=== PATIENT | male | born 1955 | race Caucasian/White ===

== ENCOUNTER → 2022-05-30 | Outpatient (CLI) | payer MEDICARE, OTHER ==
[~2022-05-30] MED LIST: ASPI81CH PO; Multivitamin1 EAC1 PO
[2022-05-30 16:11] LABS: BASOPHILS ABSOLUTE AUTO 0.05 K/mm3 (0.00-0.23); BASOPHILS PERCENT AUTO 1 % (0-2); EOSINOPHILS ABSOLUTE AUTO 0.26 K/mm3 (0.00-0.68); EOSINOPHILS PERCENT AUTO 4 % (0-6); Hematocrit 47.3 % (37.0-53.0); Hemoglobin 16.1 g/dL (13.5-17.5); IMMATURE GRAN ABSOLUTE AUTO 0.03 K/mm3 (0.00-0.10); IMMATURE GRAN PERCENT AUTO 0 % (0-1); LYMPHOCYTES ABSOLUTE AUTO 1.49 K/mm3 (0.84-5.20); LYMPHOCYTES PERCENT AUTO 21 % (21-46); MONOCYTES ABSOLUTE AUTO 0.36 K/mm3 (0.16-1.47); MONOCYTES PERCENT AUTO 5 % (4-13); Mean Corpuscular HGB 30.4 pg (26.0-34.0); Mean Corpuscular Volume 89 fL (80-100); Mean Platelet Volume 11.3 fL (9.1-12.4); NEUTROPHILS PERCENT AUTO 70 % (41-73); Platelet Count 157 K/mm3 (150-400); RDW Coefficient Variation 12.5 % (11.7-14.2); RDW Standard Deviation 41.1 fL (35.1-46.3); White Blood Cell Count 7.19 K/mm3 (4.00-11.30)
[2022-05-30 20:35] LABS: Albumin, Blood 3.8 g/dL (3.4-5.0); Albumin/Globulin Ratio 1.1 (0.8-1.8); Bilirubin, Total 0.8 mg/dL (0.1-1.0); Bun/Creatinine Ratio 20.4 (12.0-20.0); Calcium, Blood 8.9 mg/dL (8.5-10.1); Creatinine, Blood 0.84 mg/dL (0.60-1.20); Globulin, Blood 3.4 g/dL (2.2-4.0); Potassium, Blood 4.1 mmol/L (3.5-5.5); Total Protein, Blood 7.2 g/dL (6.4-8.2)
[2022-05-31 17:11] LABS: ANA DIRECT Negative (Negative); ANTI-DNA (DS) AB QN <1 IU/mL (0-9); RNP ANTIBODIES 0.5 AI (0.0-0.9); SJOGREN'S ANTI-SS-A <0.2 AI (0.0-0.9); SJOGREN'S ANTI-SS-B <0.2 AI (0.0-0.9); SMITH ANTIBODIES <0.2 AI (0.0-0.9)
== END | disposition home or self-care (01) ==
LOC: LAB SHORT 14:54
PROVIDERS: Family Medicine
DX: M15.0 Primary generalized (osteo)arthritis (principal); I10 Essential (primary) hypertension; E16.2 Hypoglycemia, unspecified; R53.83 Other fatigue
CPT/HCPCS: 80053; 83036; 85025; 85651; 86225; 86235

== ENCOUNTER → 2024-08-16 | Outpatient (CLI) | payer MEDICARE, OTHER ==
[2024-08-19 05:54] LABS: ANTI-NUCLEAR AB ANA,IGG ELISA None Detected (None Detected)
== END ==
LOC: LAB SHORT 16:47 → LAB 16:47
PROVIDERS: Nurse Practitioner Family
DX: M25.50 Pain in unspecified joint (principal)
CPT/HCPCS: 85651; 86038; 86430

== ENCOUNTER 2025-07-31 06:27 | Day surgery (SDC) | payer OTHER ==
[~2025-07-31] VITALS: Ht 180.3 cm; Wt 99.3 kg
[~2025-07-31 06:27] MED LIST changes: +NS 500 ML IV ONE
[2025-07-31] MEDS ORDERED: CeFAZolin Sodium 2,000 MG VIAL ONE (06:51)
[2025-07-31] MEDS ORDERED: LOSA50 PO (06:57)
[2025-07-31] MEDS ORDERED: NS 500 ML IV ONE (07:06)
--- NOTE | 2025-07-31 07:19 | NUR ---
[facility] [facility]ON [facility] THAT HE WILL BE HAVING ASSESSED THIS UPCOMING THURSDAY AND THAT PATIENT MENTIONED POSSIBLE BIOPSY. PER DR JOHNSON THAT SHOULD BE JUST FINE. 7014: TIMEOUT FOR PRE-OP INJECTIONS. 7 CC INJECTED INTO LEFT OP SITE (OF MIX OF 9CC IDOCAINE 1% WITH EPI 1:100,000 WITH 1 CC SODIUM BICARB) AND 8 CC INJECTED INTO RIGHT OP SITE (OF MIX OF 9 CC LIDOCAINE 1% WITH EPI 1:100,000 WITH 1 CC SODIUM BICARB. PT TOLERATED WELL.
[2025-07-31] MEDS ORDERED: Midazolam HCl 1MG / ML 2ML Vial ONE (07:40)
[2025-07-31] MEDS ORDERED: Ketorolac Tromethamine 30mg Vial ONE (08:10)
[2025-07-31 08:25] VITALS: BP 102/72
== END 2025-07-31 09:06 | disposition home or self-care (01) ==
LOC: ORSCSDS 06:27
PROVIDERS: Orthopaedic Surgery
PROC: 0JBH0ZX Excision of Left Lower Arm Subcutaneous Tissue and Fascia, Open Approach, Diagnostic (ICD-10-PCS; principal; 2025-07-31 08:00)
PROC: 01N54ZZ Release Median Nerve, Percutaneous Endoscopic Approach (ICD-10-PCS; principal; 2025-07-31 08:00)
DX: G56.03 Carpal tunnel syndrome, bilateral upper limbs (principal); I10 Essential (primary) hypertension; G47.33 Obstructive sleep apnea (adult) (pediatric); Z79.899 Other long term (current) drug therapy; Z87.891 Personal history of nicotine dependence
CPT/HCPCS: 88304; 88313; J0690; J1885; J2250; J2704; J7040